=== PATIENT | male | born 1960 | race Caucasian/White ===

== ENCOUNTER 2021-09-09 07:13 | Day surgery (SDC) | payer MEDICAID ==
[~2021-09-09] VITALS: Ht 182.9 cm; Wt 116.8 kg
[~2021-09-09 07:13] MED LIST: BACL20TA PO; CHOL20002 PO; FLO0.4C PO; LORA10TA7 PO; MONT-40 PO; OXYC10TA47 PO; PREG100C PO; TOPI50TA24 PO; ceFAZolin inj. 2,000 MG in dextrose 5%-water 100 ML IV ONE; famotidine 20mg tablet PO ONE; ringers solution, lacted 1,000 ML IV SCH
[2021-09-09 07:40] VITALS: BP 105/61
[2021-09-09 08:39] LABS: BASOPHILS # (AUTO) 0.1 X10'3 (0-0.2); EOSINOPHILS # (AUTO) 0.1 X10'3 (0-0.9); EOSINOPHILS % (AUTO) 0.8 % (0-6); LYMPHOCYTES # (AUTO) 3.7 X10'3 (1.1-4.8); LYMPHOCYTES % (AUTO) 35.7 % (21-51); MEAN CORPUSCULAR HEMOGLOBIN 30.8 PG (27.0-31.0); MEAN CORPUSCULAR HGB CONC 35.1 g/dL (33.0-36.5); MEAN CORPUSCULAR VOLUME 87.7 FL (78-98); MEAN PLATELET VOLUME 7.6 FL (7.4-10.4); MONOCYTES # (AUTO) 0.8 X10'3 (0-0.9); MONOCYTES % (AUTO) 7.5 % (2-12); NEUTROPHILS # (AUTO) 5.7 X10'3 (1.8-7.7); PRE OP HEMATOCRIT 51.2 % (42.0-52.0); PRE OP PLATELET COUNT 326 X10'3 (140-440); RED BLOOD COUNT 5.84 X10'6 (4.70-6.10); RED CELL DISTRIBUTION WIDTH 13.9 % (11.5-14.5)
[2021-09-09 11:24] LABS: ALANINE AMINOTRANSFERASE 35 U/L (12-78); ALBUMIN 3.8 G/DL (3.4-5.0); ALBUMIN/GLOBULIN RATIO 0.9 (1.1-1.5); ALKALINE PHOSPHATASE 110 IU/L (46-116); ANION GAP 8 (8-16); ASPARTATE AMINO TRANSFERASE 23 U/L (10-37); BILIRUBIN,TOTAL 0.5 MG/DL (0.1-1.0); BLOOD UREA NITROGEN 15 MG/DL (7-18); BUN/CREATININE RATIO 14.7 (5.4-32.0); CHLORIDE 103 MMOL/L (99-107); CREATININE 1.02 MG/DL (0.60-1.10); GLUCOSE 109 MG/DL (70-104); POTASSIUM 4.3 MMOL/L (3.5-5.1); SODIUM 136 MMOL/L (135-145); TOTAL CARBON DIOXIDE 24.9 MMOL/L (24-32); eGFR 74 ML/MIN
[2021-09-09] MEDS ORDERED: LIDOcaine 2% 10ml TOPICAL JELLY (Urojet) ONE (11:49)
[2021-09-09] MEDS ORDERED: FENTANYL CITRATE/PF 50 MCG/1 ML VIAL ONE (12:05)
[2021-09-09] MEDS ORDERED: ondansetron/PF 4mg/2ml inj ONE (12:38)
[2021-09-09] MEDS ORDERED: dexamethasone sod phosphate 4mg/ml inj. ONE (12:38)
[2021-09-09] MEDS ORDERED: succinylcholine 20mg/ml inj IV ONE (12:38)
[2021-09-09] MEDS ORDERED: propofol inj 20 ML IV ONE (12:38)
[2021-09-09] MEDS ORDERED: LIDOcaine 1%/PF 5ML 10 MG/ML VIAL ONE (12:38)
[2021-09-09 12:41] VITALS: BP 143/90
--- NOTE | 2021-09-09 12:41 | NUR ---
Received from OR via [facility] , accompanied by Anesthesiologist: DR POP and report given by Anesthesiolgist. VVS 20G IN LEFT HAND. TEDHOSE TO THIGH. MASK ON 10 LITERS.SCD'S. NO PAIN NOTED Addendum: 09/09/21 at 1300 by Marlene Mitchell RN Amended: Links added.
[2021-09-09 13:00] VITALS: BP 130/81
[2021-09-09 13:10] VITALS: BP 127/79
[2021-09-09 13:40] VITALS: BP 131/88
[2021-09-09] MEDS ORDERED: HYDROcodone/acetaminophen 5mg/325mg tablet PO ONE (13:50)
--- NOTE | 2021-09-09 13:51 | NUR ---
PT DOING WELL, ABLE TO GET DRESSED-UP TO BATHROOM W/O ASSIST, C/O CHRONIC BACK PAIN-GIVEN I CARY TO HELP, PIV D/CD-[facility]ULA INTACT, D/C ORDERS GIVEN TO PT-ALL QUESTIONS ANSWERED, TAKEN VIA W/C TO TRANSPORT WITH ALL BELONGINGS.
== END 2021-09-09 13:51 | disposition home or self-care (01) ==
LOC: PAS 07:13
PROVIDERS: ATTEND Urology
DX: D49.4 Neoplasm of unspecified behavior of bladder (principal); N30.20 Other chronic cystitis without hematuria; N32.89 Other specified disorders of bladder; F17.210 Nicotine dependence, cigarettes, uncomplicated; N40.0 Benign prostatic hyperplasia without lower urinary tract symptoms; E66.9 Obesity, unspecified; Z68.34 Body mass index [BMI] 34.0-34.9, adult; Z79.899 Other long term (current) drug therapy; Z88.8 Allergy status to other drugs, medicaments and biological substances; Z88.5 Allergy status to narcotic agent; Z79.82 Long term (current) use of aspirin; Z98.890 Other specified postprocedural states; Z85.810 Personal history of malignant neoplasm of tongue; Z85.51 Personal history of malignant neoplasm of bladder
CPT/HCPCS: 36415; 52235; 80053; 82948; 85025; 93005; J0330; J0690; J1100; J2405; J2704; J3010; J3490; J7060; J7120; Z7506; Z7512; A4346; A4618; A7000